=== PATIENT | female | born 1980 | race Two or more races ===

== ENCOUNTER 2023-06-15 08:45 | Emergency (ER) | payer MEDICAID, OTHER ==
[~2023-06-15] VITALS: Ht 165.1 cm; Wt 73.1 kg
[2023-06-15 09:36] LABS: Urine Bacteria NONE SEEN /hpf (None Seen); Urine Blood Negative /uL (Negative); Urine Clarity Clear (Clear); Urine Color Colorless (Yellow); Urine Protein, UAD Negative (Negative); Urine Specific Gravity 1.013 (1.001-1.035); Urine Urobilinogen Normal (Negative); Urine WBC 3 /hpf (0 - 5)
[2023-06-15 10:03] VITALS: BP 135/93; PULSE 60; RESP 18; TEMP 97.1; O2SAT 100
== END 2023-06-15 11:44 | disposition home or self-care (01) ==
LOC: ER 08:45
DX: N95.9 Unspecified menopausal and perimenopausal disorder (principal); R10.2 Pelvic and perineal pain
CPT/HCPCS: 36415; 81001; 81025; 84702

== ENCOUNTER 2023-08-03 11:07 | Emergency (ER) | payer MEDICAID ==
[~2023-08-03] VITALS: Ht 165.1 cm; Wt 75.0 kg
[2023-08-03 15:00] VITALS: BP 124/79; PULSE 79; RESP 18; TEMP 98.9; O2SAT 96
[2023-08-03] MEDS ORDERED: KETOROLAC TROMETH 30 MG/ML 1ML VIAL IM ONE (15:45)
[2023-08-03] MEDS ORDERED: methylPREDNISolone SOD SUCC 125 MG/2 ML VL IM ONE (15:45)
[2023-08-03] MEDS ORDERED: METH-1181 PO (18:04)
== END 2023-08-03 18:42 | disposition home or self-care (01) ==
LOC: ER 11:07
DX: S16.1XXA Strain of muscle, fascia and tendon at neck level, initial encounter (principal); E11.9 Type 2 diabetes mellitus without complications; Z87.440 Personal history of urinary (tract) infections; V43.52XA Car driver injured in collision with other type car in traffic accident, initial encounter; Y93.89 Activity, other specified; Y92.488 Other paved roadways as the place of occurrence of the external cause; Y99.8 Other external cause status
CPT/HCPCS: 72100; 81025; 96372; 99284; J1885; J2930

== ENCOUNTER 2024-10-05 17:49 | Emergency (ER) | payer MEDICAID, OTHER ==
[~2024-10-05] VITALS: Ht 165.1 cm; Wt 75.9 kg
[~2024-10-05 17:49] MED LIST: METH-1181 PO
[2024-10-05 18:50] VITALS: BP 130/72; PULSE 74; RESP 16; TEMP 97.8; O2SAT 96
--- NOTE | 2024-10-05 19:23 | ED.PDOC ---
History of Present Illness EXP HPI Comments 44-YEAR-OLD FEMALE PRESENTS TO ER WITH COMPLAINTS OF NEEDLESTICK INJURY X1 DAY. PATIENT REPORTS THAT SHE WAS ACCIDENTALLY POKED WITH A USED LANCET NEEDLE ON HER RIGHT 1ST AND 2ND FINGER AT 1:00 P.M. PRIOR TO ARRIVAL TO ER. REPORTS MINIMAL BLOOD EXPOSURE TO AREA OF NEEDLE STICK AND STATES THAT SHE IMMEDIATELY WASHED THE AREA WITH ANTIBACTERIAL SOAPS/WATER. DENIES ANY PAIN. NOTES SHE IS UP-TO-DATE ON VACCINATIONS AND DENIES ANY KNOWN BLOOD BORN PATHOGEN DISEASES FOR HER OR FROM THE PATIENTS USED NEEDLE THAT SHE WAS POKED BY. DENIES ANY FURTHER SYMPTOMS/COMPLAINTS Chief Complaint: Post Exposure Time Seen by MD: 18:21 Primary Care Provider: WORK [facility] Reviewed Notes: Nurses Notes, Medications, Allergies Allergies: Coded Allergies: NO KNOWN ALLERGIES (Unverified , 09/30/14) Home Meds Active Scripts Methocarbamol (Methocarbamol) 500 Mg Tab, 500 MG PO TIDP PRN for 10 Days, #30 TAB 0 Refills Prov:JULEE REYNOSO NP 08/03/23 Information Source: Patient Mode of Arrival: Ambulatory Past Medical History PAST MEDICAL HISTORY: DM, UTI'S Surgical History: Denies all surgeries LEGAL INSTRUMENTS EXAMINER History: No Pertinent LEGAL INSTRUMENTS EXAMINER History Family History Family History: Unknown Social History Smoker: Non-Smoker Alcohol: Denies ETOH Use Drugs: Denies Drug Use Lives In: Home Constitutional: denies: chills, diaphoresis, fatigue, fever, malaise, sweats, weakness, others EENTM: denies: blurred vision, double vision, ear bleeding, ear discharge, ear drainage, ear pain, ear ringing, eye pain, eye redness, hearing loss, mouth pain, mouth swelling, nasal discharge, nose bleeding, nose congestion, nose pain, photophobia, tearing, throat pain, throat swelling, voice changes, others Respiratory: denies: cough, hemoptysis, orthopnea, SOB at rest, shortness of breath, SOB with excertion, stridor, wheezing, others Cardiovascular: denies: chest pain, dizzy spells, diaphoresis, Dyspnea on exertion, edema, irregular heart beat, left arm pain, lightheadedness, palpitations, PND, syncope, others Gastrointestinal: denies: abdomen distended, abdominal pain, blood streaked bowels, constipated, diarrhea, dysphagia, difficulty swallowing, hematemesis, melena, nausea, poor appetite, poor fluid intake, rectal bleeding, rectal pain, vomiting, others Genitourinary: denies: abnormal vagina bleeding, burning, dyspareunia, dysuria, flank pain, frequency, hematuria, incontinence, pain, , vagina discharge, urgency, others Neurological: denies: dizziness, fainting, headache, left sided numbness, left sided weakness, numbness, paresthesia, pre-existing deficit, right sided numbness, right sided weakness, seizure, speech problems, tingling, tremors, weakness, others Musculoskeletal: denies: back pain, gout, joint pain, joint swelling, muscle pain, muscle stiffness, neck pain, others Integumetry: reports: others ( STATED IN HPI) Allergic/Immunocompromised: denies: Difficulty Healing, Frequent Infections, Hives, Itching, others Hematologic/Lymphatic: denies: anemia, blood clots, easy bleeding, easy bruising, swollen glands, others Endocrine: denies: excessive hunger, excessive sweating, excessive thirst, excessive urination, flushing, intolerance to cold, intolerance to heat, unexplained weight gain, unexplained weight loss, others Psychiatric: denies: anxiety, bipolar disorder, depression, hopeless, panic disorder, schizophrenia, sleepless, suicidal, others Physical Exam General Appearance: No Apparent Distress HEENT: PERRL/EOMI Neck: Full Range of Motion, Non-Tender, Normal Respiratory: Chest Non-Tender, Lungs Clear, No Accessory Muscle Use, No Respiratory Distress, Normal Breath Sounds Cardiovascular: No Murmur, No Gallop, Regular Rate/Rhythm Breast Exam: Deferred Gastrointestinal: NOT DONE Genitalia: Deferred Pelvic: Deferred Rectal: Deferred Extremities: Normal capillary refill, Normal range of motion Neurologic: Alert, wedger II-XII nml as Tested, No Motor Deficits, Normal Affect, Normal Mood, No Sensory Deficits Cerebellar Function: Normal Reflexes: Normal Skin: Dry, Warm, Other (<.25 CM PUNCTURE RIAZ NOTED TO RIGHT 2ND FINGER. NO FURTHER SKIN CHANGES NOTED) Peripheral Pulses: 2+ Radial (R), 2+ Radial (L), 2+ Brachial (R), 2+ Brachial (L) Lymphatic: No Adenopathy Was a procedure done? Was a procedure done?: No Sedation Sedation?: No Differential Diagnosis (EXP) Differential Diagnosis: Infect. Disease exposure, Other (LACERATION, NEUROV ASCULAR INJURY, FOREIGN BODY) X-Ray, Labs, Meds, VS Vital Signs Date Time Temp Pulse Resp B/P (MAP) Pulse Ox O2 Delivery O2 Flow Rate FiO2 10/05/24 18:50 97.8 74 16 130/72 (91) 96 97.8 10/05/24 18:50 74 16 96 Room Air 10/05/24 18:15 97.8 74 16 130/72 (91) 96 Lab Test 10/05/24 19:05 Range/Units Hepatitis B Surface Antigen Pending Hepatitis B Surface Antibody Pending Hepatitis C Antibody Pending HIV (1&2) Antibody Pending BENEFITS/RISKS OF STARTING PROPHYLACTIC HIV TREATMENT REVIEWED AND DISCUSSED WITH PATIENT FULL DETAILS. PATIENT VERBALIZED UNDERSTANDING, REFUSING PROPHYLACTIC HIV TREATMENT POST EXPOSURE LABS ORDERED WORKMAN'S [facility] PAPERWORK FILLED OUT ADVISED TO FOLLOW UP WITH PCP AND WORKMAN'S [facility] PCP IN 1-2 DAYS PATIENT VERBALIZED UNDERSTANDING AND AGREEABLE WITH CURRENT PLAN OF CARE ADVISED TO RETURN TO ER IMMEDIATELY IF SYMPTOMS WORSEN Time of 1ST Reevaluation: 19:02 Reevaluation 1ST: N/A Patient Education/Counseling: Diagnosis, Treatment, Prognosis, Need For Follow Up Family Education/Counseling: No Family Present Departure 1 Departure Time of Disposition: 19:22 Impression: Primary Impression: Needle stick injury of finger of right hand Disposition: 01 HOME / SELF CARE / HOMELESS Condition: Stable Discharged With: Self Critical Care Note Critical Care Time?: No Stability Stability form required: No Heart Score Heart Score: Heart Score Response (Comments) Value History N/A 0 EKG N/A 0 Age N/A 0 Risk Factors N/A 0 Troponin N/A 0 Total 0 YUNIOR SCHULTZ Oct 05, 2024 19:23
[2024-10-06 10:37] LABS: Hepatitis B Surface Antibody Positive (Negative); Hepatitis B Surface Antigen Negative (Negative)
== END 2024-10-05 19:48 | disposition home or self-care (01) ==
LOC: ER 17:49
DX: S61.230A Puncture wound without foreign body of right index finger without damage to nail, initial encounter (principal); E11.9 Type 2 diabetes mellitus without complications; Z87.440 Personal history of urinary (tract) infections; W46.0XXA Contact with hypodermic needle, initial encounter; Y93.89 Activity, other specified; Y92.89 Other specified places as the place of occurrence of the external cause; Y99.8 Other external cause status
CPT/HCPCS: 36415; 86703; 86706; 86803; 87340

== ENCOUNTER 2024-10-16 21:59 | Emergency (ER) | payer MEDICAID, OTHER ==
[~2024-10-16] VITALS: Ht 165.1 cm; Wt 76.3 kg
--- NOTE | 2024-10-17 00:17 | ED.PDOC ---
History of Present Illness HPI Comments 44 y/o F presents with c/o headache, neck pain, uncontrolled, bilateral eye twitching, photophobia, and nausea for 1 day, today. Patient endorses on unprovoked onset of symptoms, yesterday, with no prior history of, that has been progressively worsening since. She comments on pain being throbbing in quality that she ascribes to being "out of this world" in severity and suspects on having a "meningitis/HSV" outbreak. Patient further reports on pain worsening with bright lights, loud noises, "pressure," and head/neck movement. Patient endorses a past medical history of DM, HSV, and UTI's and reports no recent injuries, sick contact, travel, or other relevant or pertinent information at time of assessment. She denies having any dizziness, vision or speech changes, nausea, vomiting, fever, chills, or other associated symptoms or modifiers at this time. Chief Complaint: Body Pain Time Seen by MD: 00:00 Primary Care Provider: WORK [facility] Reviewed Notes: Nurses Notes, Medications, Allergies Allergies: Coded Allergies: NO KNOWN ALLERGIES (Unverified , 09/30/14) Home Meds Active Scripts Methocarbamol (Methocarbamol) 500 Mg Tab, 500 MG PO TIDP PRN for 10 Days, #30 TAB 0 Refills Prov:ANGELESJULEE GRADUATE ENGINEER 08/03/23 Information Source: Patient Mode of Arrival: Wheelchair Severity: Moderate Timing: Days Duration: Since onset Prehospital treatment: None Past Medical History PAST MEDICAL HISTORY: DM, UTI'S Past Medical History (Other): HSV Surgical History: Denies all surgeries [place] History: No Pertinent [place] History Family History Family History: Unknown Social History Smoker: Non-Smoker Alcohol: Denies ETOH Use Drugs: Denies Drug Use Lives In: Home EENTM: reports: photophobia, others (bilateral eye twitching ) Gastrointestinal: reports: nausea Neurological: reports: headache Musculoskeletal: reports: neck pain Physical Exam General Appearance: No Apparent Distress, Normal, Other HEENT: Normal ENT Inspection, Pharynx Normal, Scleral Icterus (R) (appears uncomfortable ), TMs Normal Neck: Full Range of Motion, Non-Tender, Normal, Normal Inspection Respiratory: Chest Non-Tender, Lungs Clear, No Accessory Muscle Use, No Respiratory Distress, Normal Breath Sounds Cardiovascular: No Edema, No JVD, No Murmur, No Gallop, Normal Peripheral Pulses, Regular Rate/Rhythm Breast Exam: Deferred Gastrointestinal: No Organomegaly, Non Tender, No Pulsatile Mass, Normal Bowel Sounds, Soft Genitalia: Deferred Pelvic: Deferred Rectal: Deferred Extremities: No calf tenderness, Normal capillary refill, Normal inspection, Normal range of motion, Non-tender, No pedal edema Musculoskeletal : Apperance: Normal Neurologic: Alert, limousine and hearse upholsterer II-XII nml as Tested, No Motor Deficits, Normal Affect, Normal Mood, No Sensory Deficits Cerebellar Function: Normal Reflexes: Normal Skin: Dry, Normal Color, Warm Lymphatic: No Adenopathy Was a procedure done? Was a procedure done?: No Differential Dx Considerations may include: musculoskeletal pain, spasms, viral syndrome, migraines, tension headache, electrolyte imbalance, UTI, URI X-Ray, Labs, Meds, VS Vital Signs Date Time Temp Pulse Resp B/P (MAP) Pulse Ox O2 Delivery O2 Flow Rate FiO2 10/17/24 01:15 97.6 85 18 123/79 (94) 96 97.6 10/17/24 01:15 85 18 96 Room Air* 0 21 10/16/24 22:20 97.6 79 16 152/102 (119) 98 Lab Test 10/17/24 01:38 10/17/24 01:10 10/17/24 00:30 10/17/24 00:16 Range/Units Influenza Type A Antigen Negative Negative Influenza Type B Antigen Negative Negative SARS-CoV-2 Antigen (Rapid) Negative NEGATIVE Urine Color Light-yellow Yellow Urine Clarity Clear Clear Urine pH 6.0 5.0-9.0 Urine Specific [place] 1.014 1.001-1.035 Urine Protein Negative Negative Urine Ketones Negative Negative Urine Blood Negative Negative /uL Urine Nitrite Negative Negative Urine Bilirubin Negative Negative Urine Urobilinogen Normal Negative mg/dL Urine Leukocyte Esterase Negative Negative /uL Urine RBC <1 0 - 4 /hpf Urine WBC 5 0 - 5 /hpf Urine Squamous Epithelial Cells Few <5 /hpf Urine Bacteria Few H None Seen /hpf Urine Glucose Normal Normal mg/dL White Blood Count 10.6 4.4-10.8 10^3/uL Red Blood Count 4.29 4.0-5.20 10^6/uL Hemoglobin 14.3 12.2-16.2 g/dL Hematocrit 40.4 36.0-46.0 % Mean Corpuscular Volume 94.3 80.0-100.0 fL Mean Corpuscular Hemoglobin 33.4 H 28.0-32.0 pg Mean Corpuscular Hemoglobin Concent 35.4 32.0-36.0 g/dL Red Cell Distribution Width 12.4 11.8-14.3 % Platelet Count 384 140-450 10^3/uL Mean Platelet Volume 6.7 L 6.9-10.8 fL Neutrophils (%) (Auto) 74.3 37.0-80.0 % Lymphocytes (%) (Auto) 21.5 10.0-50.0 % Monocytes (%) (Auto) 3.4 0.0-12.0 % Eosinophils (%) (Auto) 0.5 0.0-7.0 % Basophils (%) (Auto) 0.3 0.0-2.0 % Neutrophils # (Auto) 7.8 1.6-8.6 10 ^3/uL Lymphocytes # (Auto) 2.3 0.4-5.4 10 ^3/uL Monocytes # (Auto) 0.4 0-1.3 10 ^3/uL Eosinophils # (Auto) 0.1 0-0.8 10 ^3/uL Basophils # (Auto) 0 0-0.2 10 ^3/uL Nucleated Red Blood Cells 0.0 % Sodium Level 137 136-145 mmol/L Potassium Level 4.1 3.5-5.1 mmol/L Chloride Level 106 98-107 mmol/L Carbon Dioxide Level 22 20-31 mmol/L Anion Gap 9 5-15 Blood Urea Nitrogen 11 9-23 mg/dL Creatinine 0.77 0.550-1.02 mg/dL Glomerular Filtration Rate Calc 98 >90 mL/min BUN/Creatinine Ratio 14.3 10.0-20.0 Serum Glucose 115 H 74-106 mg/dL Calcium Level 10.8 H 8.7-10.4 mg/dL Current Medications Medications (Trade) Dose Ordered Sig/Monty Route Start Time Stop Time Status Last Admin Sodium Chloride 1,000 ml @ 1,000 mls/hr Q1H ONCE IV 10/17/24 00:15 10/17/24 01:14 DC 10/17/24 01:17 Metoclopramide HCl (Reglan Injection) 10 mg ONCE ONCE IV 1/20/25 00:15 10/17/24 00:16 DC 10/17/24 01:27 Ketorolac Tromethamine (Toradol Injection) 15 mg ONCE ONCE IV 10/17/24 00:15 10/17/24 00:16 DC 10/17/24 01:27 Acetaminophen (Tylenol Tablet) 650 mg ONCE ONCE PO 10/17/24 00:15 10/17/24 00:16 DC 10/17/24 01:25 Time of 1ST Reevaluation: 00:30 Reevaluation 1ST: Unchanged Patient Education/Counseling: Diagnosis, Treatment Family Education/Counseling: No Family Present Additional Information I reviewed the following notes from patient's past medical encounters: ED visit physician note 10/05/2024 and 08/03/2023 The following tests were ordered, and results were reviewed by me: COVID19 ANTIGEN, RAPID INFLUENZA A&B TESTS, CBC, CMP I discussed treatment and results with medical personnel Departure 1 Departure Time of Disposition: 03:27 (Patient is feeling significantly better. She has had her symptoms have resolved and she would like to go home at this time.) Impression: Primary Impression: Migraine Qualified Codes: G43.109 - Migraine with aura, not intractable, without status migrainosus Disposition: 01 HOME / SELF CARE / HOMELESS Condition: Stable Additional Instructions: You likely had a migraine. You received medications in the ER. You can take tylenol and motrin as needed for pain. You should stay well rested and well hydrated. It is important to follow up with your regular doctor within one week. If your symptoms worsen or you have any other concerns then please return to the ER. Discharged With: Self Critical Care Note Critical Care Time?: No Stability Stability form required: No Heart Score Heart Score: Heart Score Response (Comments) Value History N/A 0 EKG N/A 0 Age N/A 0 Risk Factors N/A 0 Troponin N/A 0 Total 0 I personally scribed for STEPHANIE FAJARDO MD ([email or web address]) on 10/17/24 at 00:17. Electronically submitted by Matty Everett ([email or web address]). STEPHANIE FAJARDO MD Oct 17, 2024 00:17
[2024-10-17 00:38] LABS: Basophils # (auto) 0 10 ^3/uL (0-0.2); Basophils % (auto) 0.3 % (0.0-2.0); Eosinophils # (auto) 0.1 10 ^3/uL (0-0.8); Eosinophils % (auto) 0.5 % (0.0-7.0); Hematocrit 40.4 % (36.0-46.0); Hemoglobin 14.3 g/dL (12.2-16.2); Lymphocytes # (auto) 2.3 10 ^3/uL (0.4-5.4); Lymphocytes % (auto) 21.5 % (10.0-50.0); Mean Corpuscular Hemoglobin 33.4 pg (28.0-32.0); Mean Corpuscular Hgb Conc. 35.4 g/dL (32.0-36.0); Mean Corpuscular Volume 94.3 fL (80.0-100.0); Monocytes # (auto) 0.4 10 ^3/uL (0-1.3); Monocytes % (auto) 3.4 % (0.0-12.0); Neutrophils # (auto) 7.8 10 ^3/uL (1.6-8.6); Neutrophils % (auto) 74.3 % (37.0-80.0); Platelet Count (auto) 384 10^3/uL (140-450); Red Blood Cells 4.29 10^6/uL (4.0-5.20); Red Cell Distribution Width 12.4 % (11.8-14.3); White Blood Cell 10.6 10^3/uL (4.4-10.8)
[2024-10-17 00:42] LABS: Chloride 106 mmol/L (98-107); Potassium 4.1 mmol/L (3.5-5.1); Sodium 137 mmol/L (136-145)
[2024-10-17 00:43] LABS: Anion Gap 9 (5-15); Carbon Dioxide 22 mmol/L (20-31)
[2024-10-17 00:46] LABS: Urine Bacteria FEW /hpf (None Seen); Urine Blood Negative /uL (Negative); Urine Clarity Clear (Clear); Urine Color Light-Yellow (Yellow); Urine Protein, UAD Negative (Negative); Urine Specific Gravity 1.014 (1.001-1.035); Urine Squamous Epithelial Cell FEW /hpf (<5); Urine Urobilinogen Normal (Negative); Urine WBC 5 /hpf (0 - 5)
[2024-10-17 00:48] LABS: BUN/Creatinine Ratio 14.3 (10.0-20.0); Blood Urea Nitrogen 11 mg/dL (9-23)
[2024-10-17 00:49] LABS: Calcium 10.8 mg/dL (8.7-10.4); Glucose 115 mg/dL (74-106)
[2024-10-17 01:15] VITALS: PULSE 85; RESP 18; TEMP 97.6; O2SAT 96
[2024-10-17] MEDS: SODIUM CHLORIDE 0.9% 1,000 ML IV ONE (01:17)
[2024-10-17] MEDS: ACETAMINOPHEN 325 MG TAB PO ONE (01:25)
[2024-10-17] MEDS: KETOROLAC TROMETH 30 MG/ML 1ML VIAL IV ONE (01:27)
[2024-10-17] MEDS: METOCLOPRAMIDE HCL 5MG/ml INJ 2ml VIAL IV ONE (01:27)
[2024-10-17 02:00] LABS: COVID19 ANTIGEN SOFIA FIA NEGATIVE (NEGATIVE)
[2024-10-17 02:37] LABS: Rapid Influenza A Negative (Negative); Rapid Influenza B Negative (Negative)
[2024-10-17 03:30] VITALS: BP 109/71; PULSE 69; RESP 14; O2SAT 97
== END 2024-10-17 03:35 | disposition home or self-care (01) ==
LOC: ER 21:59
DX: G43.909 Migraine, unspecified, not intractable, without status migrainosus (principal); E11.9 Type 2 diabetes mellitus without complications; Z79.899 Other long term (current) drug therapy; Z20.822 Contact with and (suspected) exposure to COVID-19
CPT/HCPCS: 36415; 80048; 81001; 85025; 87426; 87804; 96361; 96374; 96375; 99284; J1885; J2765; J7030

== ENCOUNTER 2025-08-28 11:39 | Emergency (ER) | payer MEDICAID ==
[~2025-08-28] VITALS: Ht 165.1 cm; Wt 72.0 kg
--- NOTE | 2025-08-28 12:47 | ED.PDOC ---
History of Present Illness EXP HPI Comments 45-year-old female presents to the ER with a chief complaint possible posterior exposure to HIV. Patient reports on having had sexual intercourse with her spouse who cheated on her with people who possibly have HIV. The patient recently found out that the spouse cheated yesterday. Denies any other symptoms at this time. Chief Complaint: Post Exposure Time Seen by MD: 12:45 Primary Care Provider: WORK [facility] Reviewed Notes: Nurses Notes, Medications, Allergies Allergies: Coded Allergies: NO KNOWN ALLERGIES (Unverified , 09/30/14) Home Meds Active Scripts Emtricitabine-Tenofovir Disopr (Truvada) Tab, 1 TAB PO DAILY for 28 Days, #28 TAB Prov:YUNIOR SCHULTZ 08/28/25 Raltegravir Potassium (Isentress) 400 Mg Tab, 400 MG PO BID for 28 Days, #56 TAB 0 Refills Prov:YUNIOR SCHULTZ 08/28/25 Methocarbamol (Methocarbamol) 500 Mg Tab, 500 MG PO TIDP PRN for 10 Days, #30 TAB 0 Refills Prov:JULEE REYNOSO NP 08/03/23 Discontinued Scripts Dolutegravir Sodium (TIVICAY) 50 Mg Tab, 50 MG OR DAILY for 28 Days, #28 TAB 0 Refills Prov:JULEE REYNOSO NP 08/28/25 Emtricitabine (Emtricitabine) 200 Mg Cap, 200 MG PO DAILY for 28 Days, #28 CAP 0 Refills Prov:JULEE REYNOSO NP 08/28/25 Tenofovir Disoproxil Fumarate (Tenofovir Disoproxil Fuma) 300 Mg Tab, 300 MG PO DAILY for 28 Days, #28 TAB 0 Refills Prov:JULEE REYNOSO NP 08/28/25 Information Source: Patient Mode of Arrival: Ambulatory Severity: Moderate Timing: Days Duration: Since onset, Days Prehospital treatment: None Location: Broken skin, Genitalia Exposed to: Blood, Secretions Exposed by: Splash, Sexual Contact Treatment prior to arrival: None Source information: HIV+ Patient information: None Past Medical History PAST MEDICAL HISTORY: DM, UTI'S Surgical History: Denies all surgeries DEPOSITION REPORTER History: No Pertinent DEPOSITION REPORTER History Family History Family History: Reviewed,noncontributory to illness, Unknown Social History Smoker: Non-Smoker Alcohol: Denies ETOH Use Drugs: Denies Drug Use Lives In: Home Constitutional: denies: chills, diaphoresis, fatigue, fever, malaise, sweats, weakness, others EENTM: denies: blurred vision, double vision, ear bleeding, ear discharge, ear drainage, ear pain, ear ringing, eye pain, eye redness, hearing loss, mouth pain, mouth swelling, nasal discharge, nose bleeding, nose congestion, nose pain, photophobia, tearing, throat pain, throat swelling, voice changes, others Respiratory: denies: cough, hemoptysis, orthopnea, SOB at rest, shortness of breath, SOB with excertion, stridor, wheezing, others Cardiovascular: denies: chest pain, dizzy spells, diaphoresis, Dyspnea on exertion, edema, irregular heart beat, left arm pain, lightheadedness, palpitations, PND, syncope, others Gastrointestinal: denies: abdomen distended, abdominal pain, blood streaked bowels, constipated, diarrhea, dysphagia, difficulty swallowing, hematemesis, melena, nausea, poor appetite, poor fluid intake, rectal bleeding, rectal pain, vomiting, others Genitourinary: reports: others (Possible HIV contact); denies: abnormal vagina bleeding, burning, dyspareunia, dysuria, flank pain, frequency, hematuria, incontinence, pain, , vagina discharge, urgency Neurological: denies: dizziness, fainting, headache, left sided numbness, left sided weakness, numbness, paresthesia, pre-existing deficit, right sided numbness, right sided weakness, seizure, speech problems, tingling, tremors, weakness, others Musculoskeletal: denies: back pain, gout, joint pain, joint swelling, muscle pain, muscle stiffness, neck pain, others Integumetry: denies: bruises, change in color, change in hair/nails, dryness, laceration, lesions, lumps, rash, wounds, others Allergic/Immunocompromised: denies: Difficulty Healing, Frequent Infections, Hives, Itching, others Hematologic/Lymphatic: denies: anemia, blood clots, easy bleeding, easy bruising, swollen glands, others Endocrine: denies: excessive hunger, excessive sweating, excessive thirst, excessive urination, flushing, intolerance to cold, intolerance to heat, unexplained weight gain, unexplained weight loss, others Psychiatric: denies: anxiety, bipolar disorder, depression, hopeless, panic disorder, schizophrenia, sleepless, suicidal, others All Other Systems: Reviewed and Negative Physical Exam Exam Comments Nervous, non ill-appearing General Appearance: No Apparent Distress, Normal HEENT: Normal ENT Inspection, Pharynx Normal, TMs Normal Neck: Full Range of Motion, Non-Tender, Normal, Normal Inspection Respiratory: Chest Non-Tender, Lungs Clear, No Accessory Muscle Use, No Respiratory Distress, Normal Breath Sounds Cardiovascular: No Edema, No JVD, No Murmur, No Gallop, Normal Peripheral Pulses, Regular Rate/Rhythm Breast Exam: Deferred Gastrointestinal: No Organomegaly, Non Tender, No Pulsatile Mass, Normal Bowel Sounds, Soft Genitalia: Deferred Pelvic: Deferred Rectal: Deferred Extremities: No calf tenderness, Normal capillary refill, Normal inspection, Normal range of motion, Non-tender, No pedal edema Musculoskeletal : Apperance: Normal Neurologic: Alert, racing mechanic II-XII nml as Tested, No Motor Deficits, Normal Affect, Normal Mood, No Sensory Deficits Cerebellar Function: Normal Reflexes: Normal Skin: Dry, Normal Color, Warm Lymphatic: No Adenopathy Was a procedure done? Was a procedure done?: No Differential Diagnosis (EXP) Differential Diagnosis: Needle stick exposure, Other X-Ray, Labs, Meds, VS Vital Signs Date Time Temp Pulse Resp B/P (MAP) Pulse Ox O2 Delivery O2 Flow Rate FiO2 08/28/25 13:24 90 20 96 Room Air 08/28/25 13:24 98.9 90 20 144/88 (106) 96 98.9 08/28/25 11:42 97.9 90 20 144/88 96 97.9 Lab Test 08/28/25 13:15 Range/Units Hepatitis B Surface Antigen Negative Negative Hepatitis B Surface Antibody Positive H Negative Hepatitis C Antibody Negative Negative HIV (1&2) Antibody Negative Negative X-Ray, Labs, Meds, VS Comment Patient arrives alert and oriented, ABC's intact, afebrile, vital signs stable, saturating well in room air Peripheral IV insertion+ labs were ordered. HIV one and two, hepatitis B-cell be B/C PREP started These salient points and the risk-benefit analysis of the offered HIV/HBV PEP was discussed in detail. Additional MDM Review of External, Non-ED records: External records reviewed. Discussion with independent historian (EMS, family) history obtained from the patient/parents (if applicable) at bedside Chronic conditions affecting care: None Social determinants of health affecting care: None Consideration of admission (observation or admission): I considered escalation of care to admission for this patient, however given the reassuring workup, the patient is safe for outpatient management. Discussion with the Radiology: No Tests considered but not performed: Prescription medication considered but not given: 12 lead EKG interpretation: Time of 1ST Reevaluation: 13:15 Reevaluation 1ST: Improved Patient Education/Counseling: Diagnosis, Treatment, Prognosis Family Education/Counseling: No Family Present Departure 1 Departure Time of Disposition: 14:14 Impression: Primary Impression: Risk for sexually transmitted disease Disposition: 01 HOME / SELF CARE / HOMELESS Condition: Stable e-Prescriptions Emtricitabine-Tenofovir Disopr (Truvada) Tab 1 TAB PO DAILY for 28 Days, #28 TAB Prov: YUNIOR SCHULTZ 08/28/25 Raltegravir Potassium (Isentress) 400 Mg Tab 400 MG PO BID for 28 Days, #56 TAB 0 Refills Prov: YUNIOR SCHULTZ 08/28/25 Critical Care Note Critical Care Time?: No Stability Stability form required: No Heart Score Heart Score: Heart Score Response (Comments) Value History N/A 0 EKG N/A 0 Age N/A 0 Risk Factors N/A 0 Troponin N/A 0 Total 0 I personally scribed for JULEE REYNOSO NP ([email or web address]) on 08/28/25 at 12:47. Electronically submitted by Raghav Mantilla ([employer]). I personally scribed for JULEE REYNOSO NP ([email or web address]) on 08/28/25 at 14:09. Electronically submitted by Raghav Mantilla ([email or web address]). JULEE REYNOSO NP Aug 28, 2025 12:47
[2025-08-28 13:24] VITALS: BP 144/88; PULSE 90; RESP 20; TEMP 98.9; O2SAT 96
[2025-08-28] MEDS ORDERED: DOLU50TA OR (14:20)
[2025-08-28] MEDS ORDERED: TENO300T9 PO (14:20)
[2025-08-28] MEDS ORDERED: EMTR200C5 PO (14:20)
[2025-08-28 14:28] LABS: Hepatitis B Surface Antigen Negative (Negative)
[2025-08-28] MEDS ORDERED: RALT400T PO (19:53)
[2025-08-28] MEDS ORDERED: EMTRTAB7 PO (19:53)
== END 2025-08-28 14:35 | disposition home or self-care (01) ==
LOC: ER 11:39
DX: A64 Unspecified sexually transmitted disease (principal); E11.9 Type 2 diabetes mellitus without complications; Z79.624 Long term (current) use of inhibitors of nucleotide synthesis; Z87.440 Personal history of urinary (tract) infections
CPT/HCPCS: 36415; 86703; 86706; 86803; 87340

== ENCOUNTER 2025-09-11 12:50 | Inpatient (IN) | payer MEDICAID ==
[~2025-09-11] VITALS: Ht 165.1 cm; Wt 71.3 kg
[~2025-09-11 12:50] MED LIST changes: +EMTRTAB7 PO; +RALT400T PO
--- NOTE | 2025-09-11 13:14 | ED.PDOC ---
History of Present Illness HPI Comments 45 year old female with PMHx DM presents to the ED with a chief complaint of dizziness onset 2 days. Patient states she has been experiencing dizziness for the past 2 days as well as lightheadedness. Patient has been under stress recently, studying for finals. Upon ED arrival, BG was 118, BP 130/82. Denies b lurred vision, chest pain, shortness of breath, fever, chills, nausea, vomiting, diarrhea, abdominal pain, head injury. No other symptoms or modifying factors present at this time. Chief Complaint: Dizziness Time Seen by MD: 13:10 Primary Care Provider: [facility] Reviewed Notes: Medications, Allergies Allergies: Coded Allergies: NO KNOWN ALLERGIES (Unverified , 09/30/14) Home Meds Active Scripts Emtricitabine-Tenofovir Disopr (Truvada) Tab, 1 TAB PO DAILY for 28 Days, #28 TAB Prov:YUNIOR SCHULTZ 08/28/25 Raltegravir Potassium (Isentress) 400 Mg Tab, 400 MG PO BID for 28 Days, #56 TAB 0 Refills Prov:YUNIOR SCHULTZ 08/28/25 Methocarbamol (Methocarbamol) 500 Mg Tab, 500 MG PO TIDP PRN for 10 Days, #30 TAB 0 Refills Prov:JULEE REYNOSO NP 08/03/23 Information Source: Patient Mode of Arrival: Ambulatory Severity: Moderate Timing: Days Duration: Since onset Prehospital treatment: None Past Medical History PAST MEDICAL HISTORY: DM, UTI'S Surgical History: Denies all surgeries BALE OPENER History: No Pertinent BALE OPENER History Family History Family History: Reviewed,noncontributory to illness, Unknown Social History Smoker: Non-Smoker Alcohol: Denies ETOH Use Drugs: Denies Drug Use Lives In: Home Constitutional: denies: chills, diaphoresis, fatigue, fever, malaise, sweats, weakness, others EENTM: denies: blurred vision, double vision, ear bleeding, ear discharge, ear drainage, ear pain, ear ringing, eye pain, eye redness, hearing loss, mouth pain, mouth swelling, nasal discharge, nose bleeding, nose congestion, nose pain, photophobia, tearing, throat pain, throat swelling, voice changes, others Respiratory: denies: cough, hemoptysis, orthopnea, SOB at rest, shortness of breath, SOB with excertion, stridor, wheezing, others Cardiovascular: denies: chest pain, dizzy spells, diaphoresis, Dyspnea on exert ion, edema, irregular heart beat, left arm pain, lightheadedness, palpitations, PND, syncope, others Gastrointestinal: denies: abdomen distended, abdominal pain, blood streaked bowels, constipated, diarrhea, dysphagia, difficulty swallowing, hematemesis, melena, nausea, poor appetite, poor fluid intake, rectal bleeding, rectal pain, vomiting, others Genitourinary: denies: abnormal vagina bleeding, burning, dyspareunia, dysuria, flank pain, frequency, hematuria, incontinence, pain, , vagina discharge, urgency, others Neurological: reports: dizziness; denies: fainting, headache, left sided numbness, left sided weakness, numbness, paresthesia, pre-existing deficit, ri ght sided numbness, right sided weakness, seizure, speech problems, tingling, tremors, weakness, others Musculoskeletal: denies: back pain, gout, joint pain, joint swelling, muscle pain, muscle stiffness, neck pain, others Integumetry: denies: bruises, change in color, change in hair/nails, dryness, laceration, lesions, lumps, rash, wounds, others Allergic/Immunocompromised: denies: Difficulty Healing, Frequent Infections, Hives, Itching, others Hematologic/Lymphatic: denies: anemia, blood clots, easy bleeding, easy bruising, swollen glands, others Endocrine: denies: excessive hunger, excessive sweating, excessive thirst, excessive urination, flushing, intolerance to cold, intolerance to heat, unexplained weight gain, unexplained weight loss, others Psychiatric: reports: anxiety; denies: bipolar disorder, depression, hopeless, panic disorder, schizophrenia, sleepless, suicidal, others All Other Systems: Reviewed and Negative Physical Exam General Appearance: Normal, Other (anxious appearing) HEENT: Normal ENT Inspection, Pharynx Normal, TMs Normal Neck: Full Range of Motion, Non-Tender, Normal, Normal Inspection Respiratory: Chest Non-Tender, Lungs Clear, No Accessory Muscle Use, No Respiratory Distress, Normal Breath Sounds Cardiovascular: No Edema, No JVD, No Murmur, No Gallop, Normal Peripheral Pulses, Regular Rate/Rhythm Breast Exam: Deferred Gastrointestinal: No Organomegaly, Non Tender, No Pulsatile Mass, Normal Bowel Sounds, Soft Genitalia: Deferred Pelvic: Deferred Rectal: Deferred Extremities: No calf tenderness, Normal capillary refill, Normal inspection, Normal range of motion, Non-tender, No pedal edema Musculoskeletal : Apperance: Normal Neurologic: Alert, shoe treer II-XII nml as Tested, No Motor Deficits, Normal Affect, Normal Mood, No Sensory Deficits Cerebellar Function: Normal Reflexes: Normal Skin: Dry, Normal Color, Warm Lymphatic: No Adenopathy Was a procedure done? Was a procedure done?: No Differential Dx Considerations may include: ACS, CVA, viral syndrome, electrolyte abnormality, infectious etiology X-Ray, Labs, Meds, VS Vital Signs Date Time Temp Pulse Resp B/P (MAP) Pulse Ox O2 Delivery O2 Flow Rate FiO2 09/11/25 13:06 75 09/11/25 12:52 97.2 86 18 130/82 97 97.2 Lab Test 09/11/25 14:33 09/11/25 13:29 Range/Units Troponin I High Sensitivity < 3 L < 3 L </=34 ng/L White Blood Count 4.6 4.4-10.8 10^3/uL Red Blood Count 4.30 4.0-5.20 10^6/uL Hemoglobin 14.4 12.2-16.2 g/dL Hematocrit 40.3 36.0-46.0 % Mean Corpuscular Volume 93.7 80.0-100.0 fL Mean Corpuscular Hemoglobin 33.5 H 28.0-32.0 pg Mean Corpuscular Hemoglobin Concent 35.8 32.0-36.0 g/dL Red Cell Distribution Width 12.1 11.8-14.3 % Platelet Count 310 140-450 10^3/uL Mean Platelet Volume 6.6 L 6.9-10.8 fL Neutrophils (%) (Auto) 53.4 37.0-80.0 % Lymphocytes (%) (Auto) 39.2 10.0-50.0 % Monocytes (%) (Auto) 5.1 0.0-12.0 % Eosinophils (%) (Auto) 1.6 0.0-7.0 % Basophils (%) (Auto) 0.7 0.0-2.0 % Neutrophils # (Auto) 2.5 1.6-8.6 10 ^3/uL Lymphocytes # (Auto) 1.8 0.4-5.4 10 ^3/uL Monocytes # (Auto) 0.2 0-1.3 10 ^3/uL Eosinophils # (Auto) 0.1 0-0.8 10 ^3/uL Basophils # (Auto) 0 0-0.2 10 ^3/uL Nucleated Red Blood Cells 0.4 % Sodium Level 143 136-145 mmol/L Potassium Level 4.0 3.5-5.1 mmol/L Chloride Level 108 H 98-107 mmol/L Carbon Dioxide Level 27 20-31 mmol/L Anion Gap 8 5-15 Blood Urea Nitrogen 9 9-23 mg/dL Creatinine 0.88 0.550-1.02 mg/dL Glomerular Filtration Rate Calc 83 >90 mL/min BUN/Creatinine Ratio 10.2 10.0-20.0 Serum Glucose 87 74-106 mg/dL Calcium Level 9.3 8.7-10.4 mg/dL Time of 1ST Reevaluation: 13:40 Reevaluation 1ST: Unchanged Patient Education/Counseling: Diagnosis, Treatment, Prognosis Family Education/Counseling: No Family Present SEPSIS Sepsis Screen Date sepsis recognized/suspect: Sep 11, 2025 Time Sepsis recognized/suspect: 5 Recent Procedure: No On Antibiotic Therapy: No Respiratory Rate >20: No Heart Rate >90: No Temp<36 C (96.8 F) or >38.3 C: No SBP <90 or MAP <65 mmHG: No New Acute Mental Status Change: No Is the patient on CPAP, BIPAP,: No Physician Orders Electrocardigram (09/11/25 12:57) Urinalysis (09/11/25 13:12) Chest Portable (09/11/25 13:12) Head Without Contrast (09/11/25 13:12) Troponin-I Hs (09/11/25 16:12) Electrocardigram (09/11/25 14:12) Electrocardigram (09/11/25 16:12) Vital Signs Date Time Temp Pulse Resp B/P (MAP) Pulse Ox O2 Delivery O2 Flow Rate FiO2 09/11/25 13:06 75 09/11/25 12:52 97.2 86 18 130/82 97 97.2 Laboratory Tests Test 09/11/25 13:29 White Blood Count 4.6 10^3/uL (4.4-10.8) Departure 1 Departure Time of Disposition: 15:51 (Patient with suspected CVA given blurry vision near-syncope and generally feeling unwell. We will admit patient workup and expert consultation) Impression: Primary Impression: Suspected cerebrovascular accident (CVA) Additional Impressions: Autonomic dysfunction Near syncope Blurry vision Disposition: ADMITTED INPATIENT Admit to: Tele Condition: Guarded Critical Care Note Critical Care Time?: No Stability Stability form required: No Heart Score Heart Score: Heart Score Response (Comments) Value History N/A 0 EKG N/A 0 Age N/A 0 Risk Factors N/A 0 Troponin N/A 0 Total 0 I personally scribed for STEPHANIE FAJARDO MD ([email or web address]) on 09/11/25 at 13:14. Electronically submitted by Asya Pickard ([email or web address]). STEPHANIE FAJARDO MD Sep 11, 2025 13:14
[2025-09-11 13:55] LABS: Potassium 4.0 mmol/L (3.5-5.1); Sodium 143 mmol/L (136-145)
[2025-09-11 13:56] LABS: Anion Gap 8 (5-15); Carbon Dioxide 27 mmol/L (20-31)
[2025-09-11 13:57] LABS: Calcium 9.3 mg/dL (8.7-10.4)
[2025-09-11 13:58] LABS: Hematocrit 40.3 % (36.0-46.0); Hemoglobin 14.4 g/dL (12.2-16.2); Mean Corpuscular Hemoglobin 33.5 pg (28.0-32.0); Mean Corpuscular Volume 93.7 fL (80.0-100.0); Nucleated Red Blood Cells % 0.4 %
[2025-09-11 14:02] LABS: BUN/Creatinine Ratio 10.2 (10.0-20.0); Glucose 87 mg/dL (74-106)
[2025-09-11 14:04] LABS: Blood Urea Nitrogen 9 mg/dL (9-23); Chloride 108 mmol/L (98-107)
--- NOTE | 2025-09-11 14:16 | DVH ---
CHEST RADIOGRAPH INDICATION: near syncope TECHNIQUE: Single frontal view of the chest was obtained COMPARISON: None FINDINGS: Lines and Tubes: None Lungs: Clear Pleura: No effusion. No pneumothorax. Cardiomediastinal contours: Unremarkable Bones: Unremarkable IMPRESSION: No acute disease.
--- NOTE | 2025-09-11 14:21 | DVH ---
EXAM: CT HEAD WITHOUT CONTRAST INDICATION: near syncope COMPARISON: None TECHNIQUE: CT of the head without intravenous contrast. Radiation Dose Information: CT Dose: CTDI volume is 57.36 mGy. Dose-length product is 1015.69 mGy*cm The dose indicators for CT are the volume Computed Tomography (CT) Dose Index (CTDIvol) and the Dose Length Product (DLP), and are measured in units of mGy and mGy-cm, respectively. These indicators are not patient dose, but values generated from the CT scanner acquisition factors. The report includes radiation exposure data for exposures received during this examination. FINDINGS: The ventricles and sulci are normal in size and configuration for the patient's age. There is no mass-effect, hemorrhage, midline shift, or abnormal extra-axial fluid collection visible. No calvarial fracture. Essentially clear visualized paranasal sinuses. Mastoid air cells are clear. IMPRESSION: No acute intracranial hemorrhage or mass effect.
[2025-09-11 17:05] LABS: Urine Protein, UAD Negative (Negative)
[2025-09-11] MEDS: ENOXAPARIN SOD 40 MG/0.4 ML SYRINGE SC SCH (23:30)
[2025-09-11] MEDS ORDERED: MECLIZINE HCL 25 MG TAB PO PRN (23:45)
[2025-09-12] MEDS: MECLIZINE HCL 25 MG TAB PO ONE (00:01)
[2025-09-12] MEDS: SODIUM CHLORIDE 0.9% 500 ML IV ONE (00:01)
[2025-09-12 00:19] LABS: Opiate Scree,Urine Neg (NEGATIVE)
[2025-09-12 00:21] LABS: Amphetamine Screen, Urine Neg (NEGATIVE); Barbiturate Scree,Urine Neg (NEGATIVE); Benzodiazephine Screen, Urine Neg (NEGATIVE); Cannabinoid Screen, Urine Neg (NEGATIVE); Cocaine Screen, Urine Neg (NEGATIVE); Phencyclidine Screen, Urine Neg (NEGATIVE)
[2025-09-12] MEDS ORDERED: DOLU50TA PO (00:49)
[2025-09-12] MEDS ORDERED: HYDR1TAB97 PO (00:49)
[2025-09-12] MEDS ORDERED: [UNRECOGNIZED DRUG - CODE] PO (00:49)
[2025-09-12] MEDS ORDERED: SEMA1INJ SC (00:50)
[2025-09-12 00:51] VITALS: BP 110/63; PULSE 69; RESP 18; TEMP 97.7; O2SAT 99
--- NOTE | 2025-09-12 02:11 | DVHHPRES ---
History of Present Illness Resident Creating Document: LETICIA BRIGHT RESIDENT History of Present Illness Salina Kang is a 45-year-old female with past medical history of genital herpes, lumbar degenerative disease, sciatica, dyslipidemia, depression, prediabetes who presented to the hospital with complaints of Severe dizziness and blurry vision since 2 days.She also complains of associated fatigue. she reports no loss of consciousness during these episodes. She describes these episodes as short 30 minutes episodes, on and off recurrently. patient had a herpes breakout last week and was on valacyclovir since Thursday. She also is on HIV prophylaxis with emtricitabine, tenofovir and raltegravir for the past 2 weeks. she admits to being under stress due to her final exam this week. she reports that her spine surgeon has advised spine surgery for degenerative disease of the spine. PMHx:genital herpes, lumbar degenerative disease, sciatica, dyslipidemia, depression, prediabetes PSHx: Family history: TIA in mother Social history: occasional alcohol use Home medication: Wegovy, valacyclovir, [place] Allergic history: no known allergies Review of Systems Review of Systems General: patient denies fever, fatigue, weaknes, sweating, any recent changes in appetite and weight HEENT: complains of dizziness and blurry vision Cardiovascular: Denies chest pain, palpitations, dyspnea on exertion, orthopnea, or claudication. Respiratory: No cough, and wheezing. Gastrointestinal: Denies nausea, vomiting, dysphagia, odynophagia, heartburn, abdominal pain, flatulence, bloating, diarrhea, constipation, change in stool, or blood in stool. Genitourinary: No dysuria, hematuria, discharge, frequency, urgency, nocturia, incontinence, and urinary retention. Endocrine: No heat or cold intolerance, polydipsia, polyuria, and polyphagia. Neurological: No dizziness, extremity weakness and numbness, tremors, gait disturbance, seizures, and memory impairment. Psychiatric: Denies depression, anxiety,or insomnia. Musculoskeletal: Denies neck pain, stiffness and swelling, back pain, muscle weakness, joint pain, stiffness, swelling, or limited range of motion. Skin: No rashes, itching, skin lesion, changes in hair, nail, skin texture and breast. Hematologic/Lymphatic: Denies easy bruising, bleeding tendencies, or lymph node enlargement. Allergies: Coded Allergies: NO KNOWN ALLERGIES (Unverified , 09/30/14) Medications Current Medications Medications Dose Ordered Sig/Monty Route Start Time Stop Time Status Last Admin Dose Admin Enoxaparin Sodium 40 mg DAILY SC 09/11/25 23:30 Meclizine HCl 12.5 mg [id number] PRN PO 09/11/25 23:45 Exam Vital Signs Vital Signs Date Time Temp Pulse Resp B/P (MAP) Pulse Ox O2 Delivery O2 Flow Rate FiO2 09/12/25 00:51 97.7 69 18 110/63 (79) 99 97.7 09/11/25 18:28 Room Air Exam General Appearance: Alert, Oriented X3, Cooperative, No acute distress HEENT: Atraumatic, PERRLA, EOMI, Mucous membrane moist/pink Respiratory: Clear to auscultation, Normal air movement Cardiovascular: Regular rate, Normal S1, Normal S2, No murmurs, no chest wall tenderness Abdominal: Normal bowel sounds, Soft, No tenderness, No hepatospenomegaly, No masses Extremities: No clubbing, No cyanosis, No edema, Normal pulses, No tenderness/swelling Skin: No rashes, No breakdown, No significant lesion Neuro: Normal gait, Normal speech, Strength at 5/5 X4 ext, Normal tone, Sensation intact, Cranial nerves 3-12 NL, Reflexes 2+ Psych/Mental Status: Mental status NL, Mood NL Labs/Xrays Labs Test 09/11/25 16:44 09/11/25 14:33 09/11/25 13:29 Range/Units Urine Color Colorless Yellow Urine Clarity Clear Clear Urine pH 6.5 5.0-9.0 Urine Specific Robert Lee 1.010 1.001-1.035 Urine Protein Negative Negative Urine Ketones Negative Negative Urine Blood Negative Negative /uL Urine Nitrite Negative Negative Urine Bilirubin Negative Negative Urine Urobilinogen Normal Negative mg/dL Urine Leukocyte Esterase Negative Negative /uL Urine RBC 1 0 - 4 /hpf Urine Microscopic WBC 2 0-5 /HPF Urine Squamous Epithelial Cells Few <5 /hpf Urine Bacteria None seen None Seen /hpf Urine Glucose Normal Normal mg/dL Urine Opiates Screen Neg NEGATIVE Urine Fentanyl Screen Neg NEGATIVE Urine Barbiturates Screen Neg NEGATIVE Urine Phencyclidine Screen Neg NEGATIVE Urine Amphetamines Screen Neg NEGATIVE Urine Benzodiazepines Screen Neg NEGATIVE Urine Cocaine Screen Neg NEGATIVE Urine Cannabinoids Screen Neg NEGATIVE Magnesium Level 2.1 1.6-2.6 mg/dL Troponin I High Sensitivity < 3 L </=34 ng/L Thyroid Stimulating Hormone (TSH) 0.56 0.55-4.78 uIU/mL White Blood Count 4.6 4.4-10.8 10^3/uL Red Blood Count 4.30 4.0-5.20 10^6/uL Hemoglobin 14.4 12.2-16.2 g/dL Hematocrit 40.3 36.0-46.0 % Mean Corpuscular Volume 93.7 80.0-100.0 fL Mean Corpuscular Hemoglobin 33.5 H 28.0-32.0 pg Mean Corpuscular Hemoglobin Concent 35.8 32.0-36.0 g/dL Red Cell Distribution Width 12.1 11.8-14.3 % Platelet Count 310 140-450 10^3/uL Mean Platelet Volume 6.6 L 6.9-10.8 fL Neutrophils (%) (Auto) 53.4 37.0-80.0 % Lymphocytes (%) (Auto) 39.2 10.0-50.0 % Monocytes (%) (Auto) 5.1 0.0-12.0 % Eosinophils (%) (Auto) 1.6 0.0-7.0 % Basophils (%) (Auto) 0.7 0.0-2.0 % Neutrophils # (Auto) 2.5 1.6-8.6 10 ^3/uL Lymphocytes # (Auto) 1.8 0.4-5.4 10 ^3/uL Monocytes # (Auto) 0.2 0-1.3 10 ^3/uL Eosinophils # (Auto) 0.1 0-0.8 10 ^3/uL Basophils # (Auto) 0 0-0.2 10 ^3/uL Nucleated Red Blood Cells 0.4 % Sodium Level 143 136-145 mmol/L Potassium Level 4.0 3.5-5.1 mmol/L Chloride Level 108 H 98-107 mmol/L Carbon Dioxide Level 27 20-31 mmol/L Anion Gap 8 5-15 Blood Urea Nitrogen 9 9-23 mg/dL Creatinine 0.88 0.550-1.02 mg/dL Glomerular Filtration Rate Calc 83 >90 mL/min BUN/Creatinine Ratio 10.2 10.0-20.0 Serum Glucose 87 74-106 mg/dL Calcium Level 9.3 8.7-10.4 mg/dL SEPSIS Sepsis Screen Date sepsis recognized/suspect: Sep 11, 2025 Time Sepsis recognized/suspect: 1829 Recent Procedure: No On Antibiotic Therapy: No Respiratory Rate >20: No Heart Rate >90: No Temp<36 C (96.8 F) or >38.3 C: No SBP <90 or MAP <65 mmHG: No New Acute Mental Status Change: No Is the patient on CPAP, BIPAP,: No Physician Orders Admit (09/11/25 23:27) Allergies (09/11/25 23:27) Code Status (09/11/25 23:27) Fall Risk Precautions In Place QSHIFT (09/11/25 23:27) Complete Blood Count (09/12/25 04:00) Comprehensive Metabolic Panel (09/12/25 04:00) Condition: Fair (09/11/25 23:27) Enoxaparin Sodium (Lovenox) (09/11/25 23:30) Orthostatic Vital Signs (09/11/25 ) Meclizine Tablet (Antivert Tablet) (09/11/25 23:45) Consistent Carb(Ccho)Diabetes (09/12/25 Breakfast) Lipid Panel (09/12/25 00:49) Hemoglobin A1c (09/12/25 00:49) Echo 2d Mode Cardiac Dop (09/12/25 00:50) Vital Signs Date Time Temp Pulse Resp B/P (MAP) Pulse Ox O2 Delivery O2 Flow Rate FiO2 09/12/25 00:51 97.7 69 18 110/63 (79) 99 97.7 09/12/25 00:12 98.2 86 20 102/69 (80) 96 98.2 09/11/25 18:28 78 18 99 Room Air 09/11/25 18:28 97.8 78 18 108/72 (84) 99 97.8 Medications Medications Dose Ordered Sig/Monty Route Start Time Stop Time Status Last Admin Dose Admin Sodium Chloride 500 ml @ 500 mls/hr Q1H ONCE IV 09/11/25 23:45 09/12/25 00:44 DC 09/12/25 00:01 500 MLS/HR Assessment/Plan Assessment/Plan Assessment and plan Presyncope Meclizine Echo Orthostatic vital signs UDS, magnesium, TSH Hemoglobin A1c, lipid panel IV fluids Telemetry Genital herpes Follow up with PCP on discharge Prediabetes Follow hemoglobin A1c Target in-hospital blood glucose below 180 Lumbar degenerative disc disease Sciatica Follow up with spine surgeon as outpatient Dyslipidemia Follow lipid panel History of depression Follow up with PCP on discharge PUD prophylaxis: not needed DVT prophylaxis: Levonox 40mg Barriers to discharge: Medical diagnosis and management in progress. Patient lives with family. Independent for ADL. PCP: Dr. Mishra Specialist Relevent To Admission: None Case discussed with Dr. Smith. Code Status: Full Code. Complex patient care discussion needed. Spend total 33 minutes for bedside assessment, case discussion and management. Plan discussed with: Patient My Orders Orders - LETICIA BRIGHT RESIDENT Procedure Category Date Status Time Admit ADMIT 09/11/25 Transmitted 23:27 Allergies JAEL 09/11/25 In Process 23:27 Code Status CODE 09/11/25 Transmitted 23:27 Fall Risk Precautions JAEL 09/11/[address] 23:27 Complete Blood Count LAB 09/12/25 Logged 04:00 Comprehensive LAB 09/12/25 Logged Metabolic Panel 04:00 Condition: Fair JAEL 09/11/25 In Process 23:27 Enoxaparin Sodium PHA 09/11/25 In Process (Lovenox) 23:30 Orthostatic Vital ED NURSING 09/11/25 Transmitted Signs Meclizine Tablet PHA 09/11/25 In Process (Antivert Tablet) 23:45 Consistent DIET 09/12/25 Transmitted Carb(Ccho)Diabetes Breakfast Lipid Panel LAB 09/12/25 Logged 00:49 Hemoglobin A1c LAB 09/12/25 Logged 00:49 Echo 2d Mode Cardiac US 09/12/25 Logged DOP 00:50 Visit Coding STANDARD RES Billing Provider: KI SMITH MD Date of Service if different f: Sep 12, 2025 Common Visit Codes: 71197-[id number] INP/OBS CARE (HIGH) Secondary Visit Codes: 91136-[id number] CARE PLAN 30 MINUTES LETICIA BRIGHT Sep 12, 2025 02:11
[2025-09-12 03:06] LABS: Hematocrit 37.8 % (36.0-46.0); Hemoglobin 13.4 g/dL (12.2-16.2); Mean Corpuscular Hemoglobin 33.0 pg (28.0-32.0); Mean Corpuscular Volume 92.8 fL (80.0-100.0); Nucleated Red Blood Cells % 0.2 %
[2025-09-12 03:26] LABS: Alanine Aminotransferase 32 U/L (7-40); Albumin 4.0 g/dL (3.2-4.8); Alkaline Phosphatase 59 U/L (46-116); Anion Gap 8 (5-15); BUN/Creatinine Ratio 16.0 (10.0-20.0); Blood Urea Nitrogen 13 mg/dL (9-23); Calcium 8.9 mg/dL (8.7-10.4); Carbon Dioxide 27 mmol/L (20-31); Glucose 93 mg/dL (74-106); Potassium 4.0 mmol/L (3.5-5.1); Total Protein 6.6 g/dL (5.7-8.2)
[2025-09-12 03:53] LABS: Bilirubin, Total 0.3 mg/dL (0.2-1.0); Chloride 110 mmol/L (98-107); Sodium 145 mmol/L (136-145)
[2025-09-12] MEDS: HYDROcodone-ACET 5/325MG TAB PO PRN (04:02)
[2025-09-12 04:18] LABS: Cholesterol 148 mg/dL (< 200)
[2025-09-12 04:55] LABS: HDL Cholesterol 32 mg/dL (40-59); Triglycerides 207 mg/dL (< 150)
[2025-09-12 09:00] VITALS: BP 112/73; PULSE 80; RESP 14; TEMP 97.7; O2SAT 97
--- NOTE | 2025-09-12 13:54 | DVHDSRES ---
Discharge Summary Date of Admission Resident Creating Document: ALLEN VILLAGOMEZ RESIDENT Sep 11, 2025 at 23:27 Date of Discharge: Sep 12, 2025 Admitting Diagnosis Dizziness with vertigo suspected presyncope Labs/Diagnostic Data: Laboratory Results Test 09/12/25 09:10 09/12/25 02:33 09/11/25 16:44 09/11/25 14:33 Mean Platelet Volume 6.7 fL (6.9-10.8) Neutrophils # (Auto) 2.4 10 ^3/uL (1.6-8.6) Lymphocytes # (Auto) 2.4 10 ^3/uL (0.4-5.4) Monocytes # (Auto) 0.3 10 ^3/uL (0-1.3) Eosinophils # (Auto) 0.1 10 ^3/uL (0-0.8) Basophils # (Auto) 0 10 ^3/uL (0-0.2) Sodium Level 145 mmol/L (136-145) Potassium Level 4.0 mmol/L (3.5-5.1) Chloride Level 110 mmol/L (98-107) Carbon Dioxide Level 27 mmol/L (20-31) Anion Gap 8 (5-15) Blood Urea Nitrogen 13 mg/dL (9-23) Creatinine 0.81 mg/dL (0.550-1.02) Glomerular Filtration Rate Calc 92 mL/min (>90) BUN/Creatinine Ratio 16.0 (10.0-20.0) Serum Glucose 93 mg/dL (74-106) Hemoglobin A1c 4.9 % A1C (<5.7) Calcium Level 8.9 mg/dL (8.7-10.4) Total Bilirubin 0.3 mg/dL (0.2-1.0) Aspartate Amino Transferase (AST) 22 U/L (13-40) Alanine Aminotransferase (ALT) 32 U/L (7-40) Alkaline Phosphatase 59 U/L (46-116) Total Protein 6.6 g/dL (5.7-8.2) Albumin 4.0 g/dL (3.2-4.8) Triglycerides Level 207 mg/dL (< 150) Cholesterol Level 148 mg/dL (< 200) LDL Cholesterol 85 mg/dL (< 100) HDL Cholesterol 32 mg/dL (40-59) Urine Color Colorless (Yellow) Urine Clarity Clear (Clear) Urine pH 6.5 (5.0-9.0) Urine Specific [employer] 1.010 (1.001-1.035) Urine Protein Negative (Negative) Urine Ketones Negative (Negative) Urine Blood Negative /uL (Negative) Urine Nitrite Negative (Negative) Urine Bilirubin Negative (Negative) Urine Urobilinogen Normal mg/dL (Negative) Urine Leukocyte Esterase Negative /uL (Negative) Urine RBC 1 /hpf (0 - 4) Urine Microscopic WBC 2 /HPF (0-5) Urine Squamous Epithelial Cells Few /hpf (<5) Urine Bacteria None seen /hpf (None Seen) Urine Glucose Normal mg/dL (Normal) Urine Opiates Screen Neg (NEGATIVE) Urine Fentanyl Screen Neg (NEGATIVE) Urine Barbiturates Screen Neg (NEGATIVE) Urine Phencyclidine Screen Neg (NEGATIVE) Urine Amphetamines Screen Neg (NEGATIVE) Urine Benzodiazepines Screen Neg (NEGATIVE) Urine Cocaine Screen Neg (NEGATIVE) Urine Cannabinoids Screen Neg (NEGATIVE) Magnesium Level 2.1 mg/dL (1.6-2.6) Troponin I High Sensitivity < 3 ng/L (</=34) Thyroid Stimulating Hormone (TSH) 0.56 uIU/mL (0.55-4.78) Other Laboratory Tests 09/12/25 02:33 Brief Hx & Hospital Course: Patient is 45 years old female with past medical history of genital herpes, lumbar degenerative disease, sciatica, dyslipidemia, depression, prediabetes came with a complaint of dizziness and diminished vision. Initial CT head was negative, chest x-ray no acute abnormality. Vitals stable. CBC CMP with a normal limit except TG 207. During hospital course patient was treated conservatively. EKG with a sinus rhythm, no ST-T wave changes/arrhythmia. CT head negative. Patient had an order for orthostatic vitals and echo 2D for further evaluation and care. Patient left AMA. Patient's condition was undetermined on discharge. Patient left AMA Assessment Dizziness and vertigo likely due to presyncope Suspected orthostatic hypotension/positional vertigo Genital herpes Dyslipidemia Prediabetes Degenerative lumbar disease Sciatica Plan Patient left AMA Plan of care discussed with Dr. Gibson Operations or Procedures [facility] [id number] [place] [id number] Ph: [phone] DIAGNOSTIC IMAGING Diagnostic Imaging Report : [id number] Signed PATIENT: SHANNON BUENROSTRO ACCT: [id number] UNIT: [id number] : 1980 LOC: ER ROOM / BED: / AGE / SEX: 45 / F ADM STATUS: REG ER SERVICE 1312 ORDERING PHYSICIAN: STEPHANIE FAJARDO MD PROCEDURE(s): CXRP - CHEST PORTABLE REASON: near syncope ORDER NUMBER(s): [id number], ACCESSION NUMBER(s): [id number] CHEST RADIOGRAPH INDICATION: near syncope TECHNIQUE: Single frontal view of the chest was obtained COMPARISON: None FINDINGS: Lines and Tubes: None Lungs: Clear Pleura: No effusion. No pneumothorax. Cardiomediastinal contours: Unremarkable Bones: Unremarkable IMPRESSION: No acute disease. ATED BY: NISH BURROUGHS MD DICTATED DATE/TIME: 09/11/251413 SIGNED BY: NISH BURROUGHS MD SIGNED DATE/TIME: 09/11/251413 CC: [place] [id number] Ph: [phone] DIAGNOSTIC IMAGING Diagnostic Imaging Report : [id number] Signed PATIENT: SHANNON BUENROSTRO ACCT: [id number] UNIT: [id number] : 1980 LOC: ER ROOM / BED: / AGE / SEX: 45 / F ADM STATUS: REG ER SERVICE ORDERING PHYSICIAN: STEPHANIE FAJARDO MD PROCEDURE(s): HWOCT - HEAD WITHOUT CONTRAST REASON: near syncope ORDER NUMBER(s): [id number], ACCESSION NUMBER(s): [id number] EXAM: CT HEAD WITHOUT CONTRAST INDICATION: near syncope COMPARISON: None TECHNIQUE: CT of the head without intravenous contrast. Radiation Dose Information: CT Dose: CTDI volume is 57.36 mGy. Dose-length product is 1015.69 mGy*cm The dose indicators for CT are the volume Computed Tomography (CT) Dose Index (CTDIvol) and the Dose Length Product (DLP), and are measured in units of mGy and mGy-cm, respectively. These indicators are not patient dose, but values generated from the CT scanner acquisition factors. The report includes radiation exposure data for exposures received during this examination. FINDINGS: The ventricles and sulci are normal in size and configuration for the patient's age. There is no mass-effect, hemorrhage, midline shift, or abnormal extra-axial fluid collection visible. No calvarial fracture. Essentially clear visualized paranasal sinuses. Mastoid air cells are clear. IMPRESSION: No acute intracranial hemorrhage or mass effect. ATED BY: FARRAH VITAL MD DICTATED DATE/TIME: 09/11/25 141 SIGNED BY: FARRAH VITAL MD SIGNED DATE/TIME: 09/11/25 1419 CC: Condition at Discharge: Undetermined Final Diagnosis/Problems List Dizziness and vertigo likely due to presyncope Suspected orthostatic hypotension/positional vertigo No acute intracranial hemorrhage or infarction as per CT scan Genital herpes Dyslipidemia Prediabetes Degenerative lumbar disease Sciatica Discharge Disposition: AMA Discharge Instruct/Medications Diet: See Comment Diet comment: As above Activity: See Comment Activity comment: Patient left AMA Follow Up/Referral: As above Medications: As the Scheduled Dolutegravir Sodium (Tivicay), 1 TAB PO DAILY, (Reported) Emtricitabine-Tenofovir Disopr (Truvada), 1 TAB PO DAILY Semaglutide (Wegovy), 1 MG SC QWEEKLY, (Reported) Valacyclovir HCl (Valacyclovir HCl), 1 GM PO DAILY, (Reported) Scheduled PRN Hydrocodone-Acetaminophen (Hydrocodone/Acetaminophen 5-325 mg), 1 TAB PO Q6HP PRN for PAIN, (Reported) Discharge Statement: "Patient was advised to return to the ER or call 911 if any headaches, dizziness, shortness of breath, chest pain, abdominal pain, bleeding, fevers, or worsening of medical condition. Patient was counseled about treatment plan, medications, possible side effects, patientverbalized understanding. All questions were answered to the best of my ability. This discharge took greater then 30 minutes in planning, reviewing documentation, counseling the patient, and discussing with other team members." ASSESSMENT ASSESSMENT Assessment Visit Coding STANDARD RES Billing Provider: MAXI RENE MD Date of Service if different f: Sep 12, 2025 Common Visit Codes: 77394-QOB/OBS DISCH DAY >30min ALLEN VILLAGOMEZ Sep 12, 2025 13:54 MAXI RENE MD Sep 13, 2025 15:32 SONIA ALFARO Sep 13, 2025 17:47
[2025-09-13 05:08] LABS: Hematocrit 40.1 % (34.0-46.6); Hemoglobin 13.6 g/dL (11.1-15.9); MCH 33.0 pg (26.6-33.0); MCHC 33.9 g/dL (31.5-35.7); MCV 97 fL (79-97); RBC 4.12 x10E6/uL (3.77-5.28); RDW 11.8 % (11.7-15.4); WBC 4.8 x10E3/uL (3.4-10.8)
[2025-09-13 11:07] LABS: CD4/CD8 Ratio 1.57 (0.92-3.72)
--- NOTE | 2025-09-13 14:15 | ECG ---
[facility] Test Date: 2025-09-11 Test Time: 13:06:49 Pat Name: SHANNON BUENROSTRO Department: ER Room: [address] [place] [address] Gender: F Clinical Business Manager: OMAR : 1980 Requested By: MARJORIE ODONNELL Order Number: [id number] Reading MD: Measurements Intervals [place] Rate: 75 P: 60 WV: 161 QRS: 16 QRSD: 86 T: 55 QT: 363 QTc: 406 Interpretive Statements Sinus rhythm Please click the below link to view image of tracing.
== END 2025-09-12 13:07 | disposition left against medical advice (07) | DRG 204 ==
LOC: ER 12:50 → OVERFLOW 23:27
PROVIDERS: ADMIT Student in an Organized Health Care Education/Training Program; ATTEND Student in an Organized Health Care Education/Training Program
DX: I95.1 Orthostatic hypotension (principal); G90.89 Other disorders of autonomic nervous system; B00.9 Herpesviral infection, unspecified; M54.31 Sciatica, right side; M51.369 Other intervertebral disc degeneration, lumbar region without mention of lumbar back pain or lower extremity pain; E78.5 Hyperlipidemia, unspecified; Z53.29 Procedure and treatment not carried out because of patient's decision for other reasons; R73.03 Prediabetes; M54.32 Sciatica, left side; F41.9 Anxiety disorder, unspecified; Z82.3 Family history of stroke; Z98.891 History of uterine scar from previous surgery; Z79.899 Other long term (current) drug therapy; H81.10 Benign paroxysmal vertigo, unspecified ear
CPT/HCPCS: 36415; 70450; 71045; 80048; 80053; 80061; 80307; 81001; 83036; 83735; 84443; 84484; 85025; 86360; 87536; 93005; G0378